=== PATIENT | male | born 1940 | race Caucasian/White ===

== ENCOUNTER 2022-03-10 08:01 | Outpatient (CLI) | payer OTHER ==
[2022-03-10] MEDS ORDERED: Iopamidol-370 76% 500 ML 1 ML ONE (11:25)
== END 2022-03-10 08:02 | disposition home or self-care (01) ==
LOC: BICCT 08:01
DX: R63.4 Abnormal weight loss (principal); N28.1 Cyst of kidney, acquired; J98.11 Atelectasis; J92.9 Pleural plaque without asbestos; R91.1 Solitary pulmonary nodule
CPT/HCPCS: 71260; 74177; 82565; Q9967

== ENCOUNTER 2025-03-30 06:46 | Day surgery (SDC) | payer MEDICARE, OTHER ==
[2025-03-29 15:25] VITALS: BMI 26.4
[2025-03-30] MEDS ORDERED: PROPOFOL 20 ML ONE ×3 (08:48→10:07)
== END 2025-03-30 11:22 | disposition home or self-care (01) ==
LOC: SDC 06:46
PROVIDERS: ATTEND Internal Medicine Gastroenterology
PROC: 0D5K8ZZ Destruction of Ascending Colon, Via Natural or Artificial Opening Endoscopic (ICD-10-PCS; principal; 2025-03-30)
PROC: 0D5L8ZZ Destruction of Transverse Colon, Via Natural or Artificial Opening Endoscopic (ICD-10-PCS; 2025-03-30)
PROC: 0D5N8ZZ Destruction of Sigmoid Colon, Via Natural or Artificial Opening Endoscopic (ICD-10-PCS; 2025-03-30)
PROC: 0D5H8ZZ Destruction of Cecum, Via Natural or Artificial Opening Endoscopic (ICD-10-PCS; 2025-03-30)
DX: D12.3 Benign neoplasm of transverse colon (principal); D12.2 Benign neoplasm of ascending colon; D12.0 Benign neoplasm of cecum; D12.5 Benign neoplasm of sigmoid colon; D12.7 Benign neoplasm of rectosigmoid junction; K57.30 Diverticulosis of large intestine without perforation or abscess without bleeding; K57.92 Diverticulitis of intestine, part unspecified, without perforation or abscess without bleeding; I48.92 Unspecified atrial flutter; Z79.01 Long term (current) use of anticoagulants; J44.9 Chronic obstructive pulmonary disease, unspecified; Z86.0100 Personal history of colon polyps, unspecified; K21.9 Gastro-esophageal reflux disease without esophagitis; E11.22 Type 2 diabetes mellitus with diabetic chronic kidney disease; F17.200 Nicotine dependence, unspecified, uncomplicated; N18.9 Chronic kidney disease, unspecified; E78.00 Pure hypercholesterolemia, unspecified; Z79.899 Other long term (current) drug therapy; Z88.2 Allergy status to sulfonamides
CPT/HCPCS: 45385; J2704; 88305